=== PATIENT | male | born 1960 | race Caucasian/White ===

== ENCOUNTER → 2019-05-19 | Outpatient (CLI) | payer SELFPAY ==
[~2019-05-19] MED LIST: HYDR-757 PO; SULF-222 PO
--- NOTE | 2019-05-19 14:46 | Diagnostic Imaging Report ---
PROCEDURE: MR imaging of the brain without contrast. TECHNIQUE: Multiplanar, multisequence MR imaging of the brain was performed without contrast. INDICATION: Headache. Memory loss. COMPARISON: none Findings: No acute ischemia, mass, or hemorrhage. Focal areas of T2/FLAIR hyperintense signal are present in the periventricular and subcortical white matter. The ventricles, cortical sulci, and basilar cisterns are symmetric and unremarkable. The sellar and suprasellar regions have a normal appearance. The brainstem and posterior fossa are unremarkable. A small mucous retention cyst is seen in the right maxillary sinus. Otherwise, the paranasal sinuses and mastoid air cells demonstrate normal signal characteristics. The globes and orbits are symmetric and unremarkable. The scalp and calvarium have a normal appearance. Impression: 1. No acute ischemia, mass, or hemorrhage. 2. Focal areas of T2/FLAIR hyperintense signal in the periventricular and subcortical white matter. These are favored to represent chronic microvascular disease although infectious and inflammatory etiologies can also have this appearance. Demyelination is also not excluded. Recommend correlation with patient history and symptoms. Dictated by: Dictated on workstation # [id number]
== END ==
LOC: RAD 13:05
PROVIDERS: ATTEND Nurse Practitioner Family
DX: G93.89 Other specified disorders of brain (principal); R90.82 White matter disease, unspecified; R68.89 Other general symptoms and signs
CPT/HCPCS: 70551